=== PATIENT | female | born 1960 | race African-American/Black ===

== ENCOUNTER 2017-11-06 15:04 | Emergency (ER) | END 2017-11-06 18:10 | disposition home or self-care (01) ==

== ENCOUNTER 2017-11-15 16:04 | Emergency (ER) | END 2017-11-15 19:08 | disposition home or self-care (01) ==

== ENCOUNTER 2017-11-25 18:41 | Emergency (ER) | END 2017-11-25 20:12 | disposition left against medical advice (07) ==

== ENCOUNTER 2017-11-26 17:09 | Emergency (ER) | END 2017-11-26 21:39 | disposition home or self-care (01) ==

== ENCOUNTER 2018-01-01 15:24 | Emergency (ER) | END 2018-01-01 20:06 | disposition home or self-care (01) ==

== ENCOUNTER 2018-01-11 14:02 | Emergency (ER) | END 2018-01-11 17:06 | disposition home or self-care (01) ==

== ENCOUNTER 2018-02-27 13:12 | Emergency (ER) | END 2018-02-27 18:30 | disposition home or self-care (01) ==

== ENCOUNTER 2018-06-27 07:04 | Day surgery (SDC) | END 2018-06-27 11:44 | disposition home or self-care (01) ==